=== PATIENT | female | born 1975 | race Caucasian/White ===

== ENCOUNTER → 2021-01-16 | Outpatient (CLI) | payer BC ==
[~2021-01-16] MED LIST: LEXAPRO20 MG PO; PREDNISONE20 MG PO; PROAIR HFA8.5 GM INH; VITAMIN D21250 MCG PO
[2021-01-16 12:28] LABS: HEMOGLOBIN 11.4 gm/dl (12.3-15.3); RED BLOOD COUNT 4.33 M/UL (4.00-5.10); WHITE BLOOD COUNT 7.8 K/UL (4.5-11.0)
== END ==
LOC: OPSV2 11:00
PROVIDERS: Obstetrics & Gynecology
DX: Z01.812 Encounter for preprocedural laboratory examination (principal); N92.0 Excessive and frequent menstruation with regular cycle
CPT/HCPCS: 36415; 81001; 85025

== ENCOUNTER → 2021-01-18 | Day surgery (SDC) | payer BC ==
[~2021-01-18] MED LIST changes: +COLACE100 MG PO; +IBUPROFEN800 MG PO; +PERCOCET 5/325 T1 EA PO
== END | disposition home or self-care (01) ==
LOC: OR 05:39
DX: N92.1 Excessive and frequent menstruation with irregular cycle (principal); J18.9 Pneumonia, unspecified organism; E66.01 Morbid (severe) obesity due to excess calories; M19.90 Unspecified osteoarthritis, unspecified site; F32.9 Major depressive disorder, single episode, unspecified; F41.9 Anxiety disorder, unspecified; F17.200 Nicotine dependence, unspecified, uncomplicated; Z68.43 Body mass index [BMI] 50.0-59.9, adult; Z79.899 Other long term (current) drug therapy
CPT/HCPCS: 84703; 93005; J0690; J1100; J1885; J2001; J2250; J2405; J2704; J3010; J7120